=== PATIENT | male | born 1955 | race Caucasian/White ===

== ENCOUNTER 2018-11-06 11:26 | Emergency (ER) | payer OTHER ==
[2018-11-06 11:44] VITALS: BP 133/94
[2018-11-06] MEDS ORDERED: Tetan/Diph/Pertus SYR(Tdap)* 0.5 ML SYR(BOOSTRIX) use SYR IM ONE (12:14)
[2018-11-06] MEDS ORDERED: Lidocaine 2% PF * 5 ML VIAL INJ ONE (12:17)
--- NOTE | 2018-11-06 12:17 | UC ---
Laceration HPI - HPI Summary HPI Summary: 63 yo male presents with left hand laceration. He tells me that he was using a knife and it slipped and he sustained a laceration to the web spacing between his left index finger and thumb. Unsure date of last tetanus. He bandaged the area and came to . - History Of Current Complaint Chief Complaint: UCLaceration Stated Complaint: HAND LAC Time Seen by Provider: 11/06/18 12:16 Hx Obtained From: Patient Laceration Location: Hand Mechanism Of Injury: Sharp Trauma Onset/Duration: Sudden Onset Severity: Mild Pain Intensity: 2 Pain Scale Used: 0-10 Numeric - Allergies/Home Medications Allergies/Adverse Reactions: Allergies Allergy/AdvReac Type Severity Reaction Status Date / Time No Known Allergies Allergy Verified 11/06/18 11:39 Home Medications: Home Medications Ascorbic Acid [Vitamin C] 1,000 mg PO DAILY 11/06/18 [History Confirmed 11/06/18 ] PMH/Surg Hx/FS Hx/Imm Hx - Additional Past Medical History Additional PMH: None - Surgical History Surgical History: Yes Surgery Procedure, Year, and Place: hernia -2018 - Family History Known Family History: Positive: None - Social History Occupation: Employed Full-time Lives: With Family Alcohol Use: None Substance Use Type: None Smoking Status (MU): Never Smoked Tobacco Review of Systems All Other Systems Reviewed And Are Negative: Yes Constitutional: Positive: Negative Skin: Positive: Other - Laceration left hand Respiratory: Positive: Negative Cardiovascular: Positive: Negative Neurovascular: Positive: Negative Neurological: Positive: Negative Psychological: Positive: Negative Physical Exam - Summary Physical Exam Summary: GENERAL: NAD. WDWN. No pain distress. SKIN: LEFT HAND: Web spacing between index finger and thumb with 1.5cm linear laceration through the dermis. Mild active bleeding. Clean. CHEST: No accessory muscle use. Breathing comfortably and in no distress. CV: Pulses intact. Cap refill <2seconds MSK: FROM left hand and all fingers. NEURO: Alert. PSYCH: Age appropriate behavior. Triage Information Reviewed: Yes Vital Signs: Initial Vital Signs Temp 98.9 F 11/06/18 11:33 Pulse 72 11/06/18 11:33 Resp 18 11/06/18 11:33 BP 133/94 11/06/18 11:33 Pulse Ox 99 11/06/18 11:33 Vital Signs Reviewed: Yes Laceration Repair - Laceration Repair 1 Description: Linear Laceration Size After Repair: Length (cm) - 1.5 Modified For Repair: No Type Injection: Local Anesthesia Used: 2.0% Lido Cleansing Completed Via Routine Prep: Yes Closure Material: Sutures - #3 Closure Method: Single Layer Suture Of: Skin Suture Type: Prolene - 5-0 Laceration Course/Dx - Course/Dx Course Of Treatment: The procedure was explained to the pt and all questions were answered. A time out was performed, witnessed, and signed. The area was irrigated with 250mL sterile saline. 1mL of 2% lidocaine without epi was administered and good anesthetization was achieved. In the usual sterile fashion , THREE 5-0 prolene interrupted sutures were placed. The wound was bandaged with telfa . Pt tolerated procedure well. tdap updated today - Diagnosis Provider Diagnosis: Laceration of left hand Discharge - Sign-Out/Discharge Documenting (check all that apply): Patient Departure All imaging exams completed and their final reports reviewed: No Studies - Discharge Plan Condition: Stable Disposition: HOME Patient Education Materials: Care For Your Stitches (ED), Laceration (DC) Forms: *Work Release Referrals: Mateusz Dyson MD [Primary Care Provider] - Additional Instructions: If you develop a fever, shortness of breath, chest pain, new or worsening symptoms - please call your PCP or go to the ED. Your blood pressure was high at todays visit. Please see your primary provider within 4 weeks for recheck and re-evaluation. 1) Please keep the area bandaged, clean, dry, and intact for the next 24- 48hours. 2) If you develop a fever, colored or thick discharge, increased pain or swelling - please call your PCP or go to the ED. 3) Please return in 8-10 days to have your THREE sutures removed. - Billing Disposition and Condition Condition: STABLE Disposition: Home
== END 2018-11-06 13:09 | disposition home or self-care (01) ==
LOC: UCEAST 11:26
DX: S61.214A Laceration without foreign body of right ring finger without damage to nail, initial encounter (principal); W26.0XXA Contact with knife, initial encounter; Y92.9 Unspecified place or not applicable
CPT/HCPCS: 12001; 90715; 99201; G0463

== ENCOUNTER 2018-11-13 14:17 | Emergency (ER) | payer OTHER ==
[2018-11-13 14:38] VITALS: BP 114/72
--- NOTE | 2018-11-13 14:49 | UC ---
Laceration HPI - HPI Summary HPI Summary: 63 yo male presents for suture removal. He had three sutures placed by me on 11/06. Has had no issues. No erythema, drainage, or pain. No fever or chills. - History Of Current Complaint Chief Complaint: UCLaceration Stated Complaint: SUTURE REMOVAL Time Seen by Provider: 11/13/18 14:48 Hx Obtained From: Patient Laceration Location: Hand Mechanism Of Injury: Sharp Trauma Pain Intensity: 0 - Allergies/Home Medications Allergies/Adverse Reactions: Allergies Allergy/AdvReac Type Severity Reaction Status Date / Time No Known Allergies Allergy Verified 11/13/18 14:38 PMH/Surg Hx/FS Hx/Imm Hx - Additional Past Medical History Additional PMH: None - Surgical History Surgical History: Yes Surgery Procedure, Year, and Place: hernia -2017 - Family History Known Family History: Positive: None - Social History Occupation: Employed Full-time Lives: With Family Alcohol Use: None Substance Use Type: None Smoking Status (MU): Never Smoked Tobacco Review of Systems All Other Systems Reviewed And Are Negative: Yes Constitutional: Positive: Negative Skin: Positive: Other - [address] Respiratory: Positive: Negative Cardiovascular: Positive: Negative Musculoskeletal: Positive: Negative Neurological: Positive: Negative Psychological: Positive: Negative Physical Exam - Summary Physical Exam Summary: GENERAL: NAD. WDWN. No pain distress. SKIN: [address] left hand. Wound well healed with good approximation. No erythema, drainage, or edema. CHEST: No accessory muscle use. Breathing comfortably and in no distress. CV: Pulses intact. Cap refill <2seconds NEURO: Alert. PSYCH: Age appropriate behavior. Triage Information Reviewed: Yes Vital Signs: Initial Vital Signs Temp 98.6 F 11/13/18 14:35 Pulse 84 11/13/18 14:35 Resp 18 11/13/18 14:35 BP 114/72 11/13/18 14:35 Pulse Ox 100 11/13/18 14:35 Vital Signs Reviewed: Yes Laceration Course/Dx - Course/Dx Course Of Treatment: 3 sutures removed without difficulty - Diagnosis Provider Diagnosis: Visit for suture removal Discharge - Sign-Out/Discharge Documenting (check all that apply): Patient Departure All imaging exams completed and their final reports reviewed: No Studies - Discharge Plan Condition: Stable Disposition: HOME Patient Education Materials: Stitches Removal (ED) Forms: *Work Release Referrals: Mateusz Dyson MD [Primary Care Provider] - Additional Instructions: If you develop a fever, shortness of breath, chest pain, new or worsening symptoms - please call your PCP or go to the ED. - Billing Disposition and Condition Condition: STABLE Disposition: Home
== END 2018-11-13 14:59 | disposition home or self-care (01) ==
LOC: UCEAST 14:17
DX: S61.412D Laceration without foreign body of left hand, subsequent encounter (principal); W26.9XXD Contact with unspecified sharp object(s), subsequent encounter